=== PATIENT | male | born 1950 | race American Indian/Alaskan Native ===

== ENCOUNTER 2023-07-01 10:09 | Outpatient (REF) | payer MEDICARE, SELFPAY ==
[2023-07-01 13:05] LABS: MANUAL DIFF FLAG NO
[2023-07-01 13:21] LABS: Basophils Absolute Auto 0.1 X10*3/uL (0.0-0.2); Basophils Percent Auto 0.9 % (0-2); Eosinophils Absolute Auto 0.3 X10*3/uL (0.0-0.4); Hematocrit 44.6 % (42.0-52.0); Hemoglobin 14.7 g/dl (14.0-18.0); Imm Gran Abs Auto 0.08 X10*3/uL (0.00-0.03); Imm Gran Pct Auto 0.7 % (0.0-0.4); Lymphocytes Absolute Auto 1.4 X10*3/uL (1.2-4.9); Lymphocytes Percent Auto 12.9 % (20-40); Mean Corpuscular Hemoglobin 30.1 pg (27.0-33.0); Mean Corpuscular Volume 91.2 fL (80.0-98.0); Mean Platelet Volume 10.2 fL (9.4-12.4); Monocytes Absolute Auto 1.2 X10*3/uL (0.1-1.2); Monocytes Percent Auto 11.1 % (2-11); Neutrophils Absolute Auto 7.6 x10*3/uL (2.0-8.3); Neutrophils Percent Auto 71.4 % (45-73); Platelet Count 270 X10*3/uL (160-400); Red Blood Count 4.89 X10*6/uL (4.60-5.80); Red Cell Distribution Width 14.7 % (11.0-16.0); White Blood Count 10.7 X10*3/uL (4.8-10.8)
[2023-07-01 13:27] LABS: Anion Gap 11 (12-20); Blood Urea Nitrogen 14 mg/dL (9-16); Calcium 9.1 mg/dL (8.4-10.2); Carbon Dioxide 27 mmol/L (22-29); Chloride 107 mmol/L (96-108); Estimated Glomerular Filt Rate > 60; Glucose Random 100 mg/dL (60-115); Potassium 4.2 mmol/L (3.3-5.1); Sodium 141 mmol/L (135-145)
[2023-07-03 14:14] LABS: Immunoglobulin G Subclass 1 540 mg/dL (382-929); Immunoglobulin G Subclass 2 147 mg/dL (241-700); Immunoglobulin G Subclass 3 33 mg/dL (22-178); Immunoglobulin G Subclass 4 3.9 mg/dL (4-86); Immunoglobulin G Total 766 mg/dL (600-1540)
[2023-07-03 14:39] LABS: Immunoglobulin A 295 mg/dL (70-320)
[2023-07-05 05:59] LABS: Immunoglobulin E 7 kU/L (<OR=114)
== END 2023-07-01 10:10 | disposition home or self-care (01) ==
LOC: HO.HKASLDS 10:09
PROVIDERS: Internal Medicine; Visit Provider Hospitalist
DX: J84.10 Pulmonary fibrosis, unspecified (principal)
CPT/HCPCS: 36415; 80048; 82784; 82785; 85025